=== PATIENT | male | born 1995 | race Caucasian/White ===

== ENCOUNTER 2018-03-20 09:35 | Emergency (ER) | payer MEDICARE, MEDICAID ==
[2018-03-20 09:50] VITALS: BP 151/84
--- NOTE | 2018-03-20 12:48 | UC ---
Throat Pain/Nasal Derek HPI - HPI Summary HPI Summary: Patient has had a cold and now has a cough that will not go away. Denies any other symtpoms. Patient is high functioning autistic - History of Current Complaint Chief Complaint: UCRespiratory Stated Complaint: COUGH Time Seen by Provider: 03/20/18 09:53 Hx Obtained From: Patient Onset/Duration: Sudden Onset, Lasting Weeks Severity: Mild Pain Intensity: 0 Associated Signs & Symptoms: Positive: Other - cough - Allergies/Home Medications Allergies/Adverse Reactions: Allergies Allergy/AdvReac Type Severity Reaction Status Date / Time morphine Allergy Hives Verified 03/20/18 09:45 Sulfa (Sulfonamide Allergy Hives Verified 03/20/18 09:45 Antibiotics) Home Medications: Home Medications Cetirizine* [ZyrTEC 10 MG TAB*] 10 mg PO DAILY 03/20/18 [History Confirmed 03/20] cloNIDine TAB* [Catapres 0.1 MG TAB*] 0.2 mg PO BEDTIME 03/20/18 [History Confirmed 03/20/18] PMH/Surg Hx/FS Hx/Imm Hx - Surgical History Surgical History: Yes Surgery Procedure, Year, and Place: right hip surgery. bilateral elbow surgery - Social History Alcohol Use: None Substance Use Type: None Smoking Status (MU): Never Smoked Tobacco Review of Systems All Other Systems Reviewed And Are Negative: Yes Constitutional: Positive: Negative Skin: Positive: Negative Eyes: Positive: Negative ENT: Positive: Negative Respiratory: Positive: Cough Cardiovascular: Positive: Negative Gastrointestinal: Positive: Negative Genitourinary: Positive: Negative Motor: Positive: Negative Neurovascular: Positive: Negative Musculoskeletal: Positive: Negative Neurological: Positive: Negative Psychological: Positive: Negative Is Patient Immunocompromised?: No Physical Exam Triage Information Reviewed: Yes Appearance: Well-Appearing, No Pain Distress, Well-Nourished Vital Signs: Initial Vital Signs Temp 98.2 F 03/20/18 09:46 Pulse 96 03/20/18 09:46 Resp 16 03/20/18 09:46 BP 151/84 03/20/18 09:46 Pulse Ox 97 03/20/18 09:46 Vital Signs Reviewed: Yes Eye Exam: Normal ENT: Positive: Pharyngeal erythema, TMs normal Dental Exam: Normal Neck exam: Normal Respiratory Exam: Normal Respiratory: Positive: Chest non-tender, Lungs clear, Normal breath sounds Cardiovascular Exam: Normal Cardiovascular: Positive: RRR, No Murmur, Pulses Normal Abdominal Exam: Normal Musculoskeletal Exam: Normal Neurological Exam: Normal Psychological Exam: Normal Skin Exam: Normal Throat Pain/Nasal Course/Dx - Course Course Of Treatment: hx obtained, exam performed ,meds reviewed, given tesslon pearls for his cough, per patient request. NO other symptoms noted. - Differential Dx/Diagnosis Differential Diagnosis/HQI/PQRI: Laryngitis, Pharyngitis, Sinusitis, URI Provider Diagnosis: Cough, Pharyngitis Discharge - Sign-Out/Discharge Documenting (check all that apply): Patient Departure All imaging exams completed and their final reports reviewed: No Studies - Discharge Plan Condition: Stable Disposition: HOME Patient Education Materials: Pharyngitis (ED) Referrals: Vijay Mcneill PA [Primary Care Provider] - Additional Instructions: 1. Increase fluid intake and due warm salt water gargles 2. use the tesslon pearls as needed for cough - Billing Disposition and Condition Condition: STABLE Disposition: Home
== END 2018-03-20 10:12 | disposition home or self-care (01) ==
LOC: UCCORT 09:35
DX: J02.9 Acute pharyngitis, unspecified (principal); R05 Cough; Z88.1 Allergy status to other antibiotic agents; Z88.5 Allergy status to narcotic agent
CPT/HCPCS: 99212; G0463